=== PATIENT | male | born 1980 | race Caucasian/White ===

== ENCOUNTER 2020-02-27 13:32 | Emergency (ER) | payer BC, SELFPAY ==
[2020-02-27] MEDS ORDERED: ONDANSETRON 4 MG/2 ML VIAL ONE (14:12)
[2020-02-27] MEDS ORDERED: HYDROMORPHONE HCL 1 MG/ML INJ ONE ×2 (14:12→14:45)
--- NOTE | 2020-02-27 14:52 | RAD REPORT ---
EXAM DESCRIPTION: RAD - Shoulder Left 2 View - 02/27/2020 2:36 pm CLINICAL HISTORY: PAIN COMPARISON: No comparisons FINDINGS: Subcoracoid anterior dislocation of the humeral head is suspected. No gross fracture appre ciated.
[2020-02-27] MEDS ORDERED: propofoL 200 MG/20 ML VIAL IV ONE (15:35)
[2020-02-27] MEDS ORDERED: NA CHLORIDE 0.9% 1,000 ML ONE (15:35)
[2020-02-27] MEDS ORDERED: ETOMIDATE 20 MG/10 ML VIAL IV ONE (16:03)
--- NOTE | 2020-02-27 16:19 | RAD REPORT ---
EXAM DESCRIPTION: RAD - Shoulder 1 View - 02/27/2020 4:12 pm CLINICAL HISTORY: post reduction Post reduction left shoulder dislocation. COMPARISON: No comparisons FINDINGS: Hill-Sachs deformity is noted. Previously noted dislocation has been reduced.
--- NOTE | 2020-02-27 17:07 | EDPHYS ---
Physician Documentation [facility] Name: Syed Good Age: 39 yrs Sex: Male : 1980 Arrival Date: 02/27/2020 Time: 13:32 Bed 3 Private MD: Arjun Graham E ED Physician Brian Little HPI: 02/26 15:07 This 39 yrs old Male presents to ER via Wheelchair with complaints of rn Shoulder Injury. 15:07 The patient or guardian complains of decreased range of motion, an injury. left rn shoulder. Onset: The symptoms/episode began/occurred just prior to arrival. Modifying factors: the symptoms are alleviated by remaining still, The symptoms are aggravated by movement, rotation of arm. Severity of symptoms: At their worst the symptoms were moderate, in the emergency department the symptoms are unchanged. The patient has not experienced similar symptoms in the past. The patient has not recently seen a physician. Reports hanging onto something, fell from height, landed on floor, feels like dislocated left shoulder, has dislocated right shoulder but never left. Hurts to move it.. Historical: - Allergies: 13:46 No Known Allergies; ca1 - Home Meds: 13:46 None [Active]; ca1 - PMHx: 13:46 None; ca1 - PSHx: 13:46 back surgery; Knee surgery; ca1 - Immunization history:: Adult Immunizations up to date. - Social history:: Smoking status: Patient reports use of chewing tobacco. - Family history:: not pertinent. - Hospitalizations: : No recent hospitalization is reported. ROS: 15:07 Constitutional: Negative for fever, chills, and weight loss, MS/Extremity: + left rn shoulder injury and decreased ROM. Neuro: Negative for weakness, numbness, tingling Exam: 15:07 Constitutional: This is a well developed, well nourished patient who is awake, alert, rn holding left arm in flexed position of comfort MS/ Extremity: Pulses equal, no cyanosis. Neurovascular intact. Painful ROM left shoulder, held in passive flexion, and internal rotation Vital Signs: 13:38 BP 123 / 88; Pulse 99; Resp 16 S; Temp 98.4; Pulse Ox 92% on R/A; Weight 108.86 kg (R); ca1 Height 5 ft. 10 in. (177.80 cm) (R); 14:00 BP 111 / 82; Pulse 92; Resp 17; Pulse Ox 94% ; bp 15:30 BP 126 / 87; Pulse 96; Resp 25; Temp 98.1; Pulse Ox 94% ; bp 16:00 BP 143 / 96; Pulse 86; Resp 16; Temp 98; Pulse Ox 99% ; bp 17:00 BP 131 / 97; Pulse 86; Resp 16; Temp 97.9; Pulse Ox 96% ; bp 13:38 Body Mass Index 34.44 (108.86 kg, 177.80 cm) ca1 MDM: 13:33 Patient medically screened. rn 17:04 Differential diagnosis: Anterior dislocation with fracture, Anterior dislocation rn without fracture. Data reviewed: vital signs, nurses notes, radiologic studies, plain films, and as a result, I will discharge patient. Counseling: I had a detailed discussion with the patient and/or guardian regarding: the historical points, exam findings, and any diagnostic results supporting the discharge/admit diagnosis, radiology results, the need for outpatient follow up, to return to the emergency department if symptoms worsen or persist or if there are any questions or concerns that arise at home. Special discussion: I discussed with the patient/guardian in detail that at this point there is no indication for admission to the hospital. It is understood, however, that if the symptoms persist or worsen the patient needs to return immediately for re-evaluation. Based on the history and exam findings, there is no indication for further emergent testing or inpatient evaluation. I discussed with the patient/guardian the need to see the orthopedic surgeon for further evaluation of the symptoms. ED course: Feels much better, now reduced, will dc with ortho f/u for hill-sachs deformity. . 02/26 13:39 Order name: XRAY Shoulder LEFT 2 view; Complete Time: 14:54 rn 02/26 15:56 Order name: XRAY Shoulder (1 View); Complete Time: 16:26 rn 02/26 13:39 Order name: IV Start; Complete Time: 14:10 rn 02/26 13:39 Order name: NPO; Complete Time: 13:59 rn Administered Medications: 14:00 Drug: Dilaudid 1 mg Route: IVP; Site: right antecubital; bp 16:51 Follow up: Response: Pain is decreased bp 14:00 Drug: Zofran (Ondansetron) 4 mg Route: IVP; Site: right antecubital; bp 16:51 Follow up: Response: No adverse reaction bp 14:30 Drug: Dilaudid 1 mg Route: IVP; Site: right antecubital; bp 16:51 Follow up: Response: Pain is decreased bp 16:00 Drug: Etomidate 5 mg Route: IVP; Site: right antecubital; bp 16:51 Follow up: Response: Marked relief of symptoms bp 16:00 Drug: Propofol 160 mg Route: IVP; Site: right antecubital; bp 16:51 Follow up: Response: Marked relief of symptoms bp Disposition: 02/27/20 17:06 Discharged to Home. Impression: Other dislocation of left shoulder joint. - Condition is Stable. - Discharge Instructions: Shoulder Dislocation, How to Use a Shoulder Immobilizer. - Prescriptions for Tylenol- Codeine #3 300-30 mg Oral Tablet - take 1 tablet by ORAL route every 6 hours As needed; 15 tablet. - Medication Reconciliation Form, Thank You Letter, Antibiotic Education, Prescription Opioid Use form. - Follow up: Marcellus Medina MD; When: As needed; Reason: Recheck today's complaints, Re-evaluation by your physician. - Problem is new. - Symptoms are resolved. Signatures: Dispatcher [employer] EDMS Brian Little MD MD rn Peltier, Brian, RN RN bp Acob, Cheryl, RN RN [facility] Corrections: (The following items were deleted from the chart) 17:20 17:06 02/27/2020 17:06 Discharged to Home. Impression: Other dislocation of left bp shoulder joint. Condition is Stable. Forms are Medication Reconciliation Form, Thank You Letter, Antibiotic Education, Prescription Opioid Use. Follow up: Marcellus Medina; When: As needed; Reason: Recheck today's complaints, Re-evaluation by your physician. Problem is new. Symptoms are resolved. rn
--- NOTE | 2020-02-27 17:07 | ER ---
Nurse's Notes [facility] Name: Syed Good Age: 39 yrs Sex: Male : 1980 Arrival Date: 02/27/2020 Time: 13:32 Bed 3 Private MD: Arjun Graham E Diagnosis: Other dislocation of left shoulder joint Presentation: 02/26 13:38 Chief complaint: Patient states: Was grabbing onto something and fell forward, ca1 dislocating my L shoulder. Reports pain and limited ROM on L shoulder. 13:38 Coronavirus screen: Client denies travel out of the [place] in the last 14 days. At this ca1 time, the client does not indicate any symptoms associated with coronavirus-19. Ebola Screen: Patient negative for fever greater than or equal to 101.5 degrees Fahrenheit, and additional compatible Ebola Virus Disease symptoms Patient denies exposure to infectious person. Patient denies travel to an Ebola-affected area in the 21 days before illness onset. No symptoms or risks identified at this time. Initial Sepsis Screen: Does the patient meet any 2 criteria? No. Patient's initial sepsis screen is negative. Does the patient have a suspected source of infection? No. Patient's initial sepsis screen is negative. Risk Assessment: Do you want to hurt yourself or someone else? Patient reports no desire to harm self or others. Onset of symptoms was February 27, 2020. 13:38 Method Of Arrival: Wheelchair ca1 13:38 Acuity: RAFAELA 3 ca1 Triage Assessment: 13:40 General: Appears distressed, uncomfortable, unkempt, Behavior is cooperative, bp appropriate for age, anxious. Pain: Complains of pain in anterior aspect of left shoulder. EENT: No deficits noted. Neuro: No deficits noted. Cardiovascular: No deficits noted. Respiratory: No deficits noted. GI: No signs and/or symptoms were reported involving the gastrointestinal system. : No signs and/or symptoms were reported regarding the genitourinary system. Derm: Skin is diaphoretic. Musculoskeletal: Bony deformity noted of anterior aspect of left shoulder. Injury Description: Deformity sustained to anterior aspect of left shoulder. Historical: - Allergies: 13:46 No Known Allergies; ca1 - Home Meds: 13:46 None [Active]; ca1 - PMHx: 13:46 None; ca1 - PSHx: 13:46 back surgery; Knee surgery; ca1 - Immunization history:: Adult Immunizations up to date. - Social history:: Smoking status: Patient reports use of chewing tobacco. - Family history:: not pertinent. - Hospitalizations: : No recent hospitalization is reported. Screenin:45 Abuse screen: Denies threats or abuse. Denies injuries from another. Nutritional bp screening: No deficits noted. Tuberculosis screening: No symptoms or risk factors identified. Fall Risk None identified. Assessment: 14:00 General: SEE TRIAGE NOTE. bp 15:30 Reassessment: CONSENT FOR CLOSED REDUCTION OF LEFT SHOULDER WITH CONSCIOUS SEDATION bp SIGNED AND WITNESSED. PT EXPRESSED NO CONCERNS AND AFFIRMED UNDERSTANDING OF PLANNED PROCEDURE AND MEDICINE. 2LNC PLACED ALONG WITH NIBP, CONTINUOUS SPO2, AND CARDIAC MONITORING. SUCTION AND CRASH CART AT B/S, STANDING BY. 16:00 Reassessment: PROCEDURE COMPLETED. PT VS REMAINED WITHIN 20% OF BASELINE AND LINN bp REMAINED AT LEVELS >7. SLING PLACED AFTER POST-REDUCTION XRAY. 17:17 Reassessment: PT D/C HOME AMBULATORY WITH FAMILY. DX WITH LEFT SHOULDER CLOSED bp DISLOCATION. Vital Signs: 13:38 BP 123 / 88; Pulse 99; Resp 16 S; Temp 98.4; Pulse Ox 92% on R/A; Weight 108.86 kg (R); ca1 Height 5 ft. 10 in. (177.80 cm) (R); 14:00 BP 111 / 82; Pulse 92; Resp 17; Pulse Ox 94% ; bp 15:30 BP 126 / 87; Pulse 96; Resp 25; Temp 98.1; Pulse Ox 94% ; bp 16:00 BP 143 / 96; Pulse 86; Resp 16; Temp 98; Pulse Ox 99% ; bp 17:00 BP 131 / 97; Pulse 86; Resp 16; Temp 97.9; Pulse Ox 96% ; bp 13:38 Body Mass Index 34.44 (108.86 kg, 177.80 cm) ca1 ED Course: 13:32 Patient arrived in ED. ag5 13:32 Arjun Graham MD is Private Physician. ag5 13:33 Brian Little MD is Attending Physician. rn 13:35 Yoandy Polk RN is Primary Nurse. bp 13:45 Triage completed. ca1 13:45 Patient has correct armband on for positive identification. Bed in low position. Call bp light in reach. Side rails up X2. 13:46 Arm band placed on right wrist. ca1 14:07 Inserted saline lock: 20 gauge in right antecubital area, using aseptic technique. dh4 14:36 XRAY Shoulder LEFT 2 view In Process Unspecified. EDMS 15:30 Assist provider with reduction of left shoulder using traction, manipulation, Set up bp for procedure. Performed by Brian Little MD Immobilized with sling, Patient tolerated well. 16:00 Sling applied to left arm. bp 16:12 XRAY Shoulder (1 View) In Process Unspecified. EDMS 17:06 Marcellus Medina MD is Referral Physician. rn 17:20 IV discontinued, intact, bleeding controlled, No redness/swelling at site. Pressure bp dressing applied. Administered Medications: 14:00 Drug: Dilaudid 1 mg Route: IVP; Site: right antecubital; bp 16:51 Follow up: Response: Pain is decreased bp 14:00 Drug: Zofran (Ondansetron) 4 mg Route: IVP; Site: right antecubital; bp 16:51 Follow up: Response: No adverse reaction bp 14:30 Drug: Dilaudid 1 mg Route: IVP; Site: right antecubital; bp 16:51 Follow up: Response: Pain is decreased bp 16:00 Drug: Etomidate 5 mg Route: IVP; Site: right antecubital; bp 16:51 Follow up: Response: Marked relief of symptoms bp 16:00 Drug: Propofol 160 mg Route: IVP; Site: right antecubital; bp 16:51 Follow up: Response: Marked relief of symptoms bp Outcome: 17:06 Discharge ordered by MD. rn 17:19 Discharged to home ambulatory, with family. bp 17:19 Condition: stable 17:19 Discharge instructions given to patient, Instructed on discharge instructions, follow up and referral plans. medication usage, Demonstrated understanding of instructions, follow-up care, medications, splint care, Prescriptions given X 1. 17:20 Patient left the ED. bp Signatures: Dispatcher [employer] EDMS Brian Little MD MD rn Peltier, Brian RN Malu Hanson RN RN ca1 Gaskin, Ajare Akil Hall dh4 Corrections: (The following items were deleted from the chart) 16:53 16:00 Reassessment: PROCEDURE COMPLETED. PT VS REMAINED WITHIN 20% OF BASELINE AND bp LINN REMAINED AT LEVELS >7 bp
[2020-02-27 17:47] VITALS: BP 131/97; TEMP 97.9; O2SAT 96
== END 2020-02-27 17:20 | disposition home or self-care (01) ==
LOC: ER 13:32
DX: S43.085A Other dislocation of left shoulder joint, initial encounter (principal); W17.89XA Other fall from one level to another, initial encounter; Y93.89 Activity, other specified; Y92.9 Unspecified place or not applicable; F17.220 Nicotine dependence, chewing tobacco, uncomplicated
CPT/HCPCS: 73020; 96374; 96375; 99285; J1170; J2405; J2704; J7030